=== PATIENT | female | born 1995 | race Caucasian/White ===

== ENCOUNTER → 2021-11-18 13:56 | Outpatient (CLI) | payer OTHER, SELFPAY ==
--- NOTE | ~2021-11-18 | US_ITS ---
EXAMINATION: US soft tissue head and neck DATE: 11/18/2021 14:36 INDICATION: Generalized enlarged lymph nodes. TECHNIQUE: Multiple grayscale and Doppler ultrasound images of the neck were obtained. COMPARISON: None FINDINGS: There is an increased number of normal-sized lymph nodes in the neck bilaterally. IMPRESSION: 1. Increased number of normal-sized lymph nodes in the neck bilaterally, likely reactive. Reviewed, dictated and finalized at location A. ER
== END ==
PROVIDERS: PCP Family Medicine; Visit Provider Physician Assistant
DX: R59.1 Generalized enlarged lymph nodes (principal)
CPT/HCPCS: 76536

== ENCOUNTER 2021-11-19 16:45 | Outpatient (CLI) | payer OTHER, SELFPAY ==
[2021-11-24 14:18] LABS: EBV Nuclear Ab Antibody <18.00 U/mL (<18.00); EBV Nuclear Ab Interpretation Current (Acute); EBV Virus Capsid Ag IgM Ab >160.00 U/mL (<36.00)
== END 2021-11-19 16:46 | disposition home or self-care (01) ==
LOC: ANHLAB 16:47
PROVIDERS: PCP Family Medicine; Visit Provider Physician Assistant
DX: R59.1 Generalized enlarged lymph nodes (principal)
CPT/HCPCS: 36415; 86664; 86665

== ENCOUNTER 2024-05-19 18:48 | Emergency (ER) | payer OTHER, SELFPAY ==
[2024-05-19 19:12] VITALS: BP 118/72; PULSE 75; RESP 18; TEMP 37; O2SAT 100
--- NOTE | 2024-05-19 19:25 | ED.FEMALEGU ---
HPI - Female Genitourinary General Chief complaint: Urogenital-Female Stated complaint: Vaginal Problems Source: patient and RN notes reviewed Mode of arrival: ambulatory Limitations: no limitations History of Present Illness HPI Narrative: 28-year-old female presented for complaint of vaginal itching and white thick discharge over the past few days. She denies concern for STD. Denies hematuria, dysuria, nausea, vomiting, abdominal pain, flank pain, constipation, diarrhea, fevers or chills. Related Data Home Medications Medication Instructions Recorded Confirmed norethindrone 1 mg-ethinyl 1 tablet PO DAILY 05/19/24 05/19/24 estradiol 20 mcg (21)-iron 75 mg (7) tablet (Ariana Fe 10/24 (28)) Allergies Allergy/AdvReac Type Severity Reaction Status Date / Time No Known Allergies Allergy Verified 05/19/24 19:15 Review of Systems Review of Systems: CONSTITUTIONAL: Denies body aches, fever, chills, or sweats. CARDIOVASCULAR: Denies chest pain, palpitations, or edema. RESPIRATORY: Denies cough or dyspnea. GASTROINTESTINAL: Denies abdominal pain, nausea, vomiting, or diarrhea. GENITOURINARY: Reports vaginal itching and discharge denies dysuria, frequency, urgency, hematuria, flank pain SKIN: Denies rash, itching, or wounds. MUSCULOSKELETAL: Denies back pain or myalgia. [facility] Family History Family History Other Family history of coronary artery disease Social History Social History Smoking status: Never smoker Second hand tobacco smoke exposure: No Alcohol intake: never Drinks per week: 1 Substance use: current Substance use type: marijuana Other substance usage details: smokes marijuana qod Comments At time of signature, I have reviewed and agree with nursing past medical, surgical, social and family history unless otherwise noted. Please see nursing chart for further information. There is no relevant family history pertinent to the presenting complaint Exam Narrative: GENERAL: Well-appearing ENT: Mucous membranes pink and moist. NECK: Normal AROM. Supple. CHEST: No respiratory distress. Clear to auscultation. HEART: Regular rate and rhythm. ABDOMEN: Soft, nontender, nondistended, normal active bowel sounds. No CVA tenderness SKIN: Warm, dry, no rash. NEURO: No focal deficits. Alert and oriented x3. Gait steady. PSYCH: Normal affect. Course Course Emergency Course: Patient is aware of diagnosis, understands and agrees to treatment plan. Anticipatory guidance given. Patient agrees to follow-up as directed and is aware of reasons to seek care at the emergency department. Portions of this record may have been created with voice recognition software Level of Care: Express Care Visit Vital Signs Vital signs: Vital Signs Temperature 98.6 F 05/19/24 19:12 Pulse Rate 75 05/19/24 19:12 Respiratory Rate 18 05/19/24 19:12 Blood Pressure 118/72 05/19/24 19:12 Pulse Oximetry 100 05/19/24 19:12 Oxygen Delivery Room Air 05/19/24 19:12 Temperature 98.6 F 05/19/24 19:12 Pulse Rate 75 05/19/24 19:12 Respiratory Rate 18 05/19/24 19:12 Blood Pressure 118/72 05/19/24 19:12 Pulse Oximetry 100 05/19/24 19:12 Oxygen Delivery Room Air 05/19/24 19:12 Reviewed MDM - Female Genitourinary MDM Narrative Medical decision making narrative: symptoms consistent with yeast infection, patient would like treatment at this time. discussed prescription with patient. Advised supportive measures and signs/symptoms to go to the ER. Pt is appropriate for outpt treatment and f/u. Differential Diagnosis Differential diagnosis: Likely urinary tract infection, bacterial vaginosis, trichomoniasis, vaginitis and cystitis Discharge Plan Discharge Clinical Impression: Vaginitis Patient Disposition: Home, Self-Care Condition: Stable
== END 2024-05-19 19:41 | disposition home or self-care (01) ==
PROVIDERS: Emergency Provider Nurse Practitioner Family; PCP Family Medicine
DX: N76.0 Acute vaginitis (principal); F12.90 Cannabis use, unspecified, uncomplicated
CPT/HCPCS: 99213; G0463